=== PATIENT | male | born 1985 | race Caucasian/White ===

== ENCOUNTER 2022-10-24 16:19 | Emergency (ER) | payer SELFPAY ==
[2022-10-24] MEDS ORDERED: Sodium Chloride 0.9% 10 ML Syringe FLUSH PRN (16:43)
[2022-10-24] MEDS ORDERED: Sodium Chloride 0.9% 1,000 ML ONE (17:05)
[2022-10-24] MEDS ORDERED: Iopamidol 755 Mg/ML 75 ML Bottle IVPUSH ONE (17:08)
[2022-10-24 17:12] LABS: CHLORIDE,CL 102 mmol/L (98-107); SODIUM,NA 136 mmol/L (136-145)
[2022-10-24] MEDS ORDERED: Sodium Chloride 0.9% 50 ML IV SCH (17:15)
[2022-10-24 17:20] LABS: ESTIMATED GFR 123 mL/min (>=60)
[2022-10-24] MEDS ORDERED: Sodium Chloride 0.9% 1,000 ML IV ONE (17:24)
== END 2022-10-24 18:45 | disposition home or self-care (01) ==
LOC: KA.ED 16:19
DX: E27.9 Disorder of adrenal gland, unspecified (principal)
CPT/HCPCS: 36415; 74177; 80053; 83605; 83690; 85025; 86140; 96360; 99284; 99284-25; J7030; Q9967